=== PATIENT | female | born 1985 | race Caucasian/White ===

== ENCOUNTER 2016-12-27 16:29 | Outpatient (CLI) | payer BC ==
[2016-12-27 17:37] LABS: #Eosinphils 0.1 thou/uL (0.0-0.7); #Lymphocytes 3.2 thou/uL (1.20-3.40); #Monocytes 0.5 thou/uL (0.11-0.59); #Neutrophils 5.3 thou/uL (1.40-6.50); %Basophils 0.4 % (0.0-1.0); %Eosinophils 0.6 % (0.0-10.0); %Lymphocytes 35.4 % (21.0-51.0); %Monocytes 5.3 % (0.0-10.0); Hematocrit 41.5 % (36.0-47.0); Mean Platelet Volume 7.7 fL (7.4-10.4); Red Blood Cell (RBC) Count 4.45 mill/uL (4.20-5.40); White Blood Cell (WBC) Count 9.2 thou/uL (4.8-10.8)
[2016-12-27 18:03] LABS: ALT (SGPT) 12 U/L (8-55); AST (SGOT) 16 U/L (5-34); Alkaline Phosphatase 83 U/L (40-150); Anion Gap 12 mmol/L (10-20); BUN (Urea Nitrogen) 13 mg/dL (7.0-18.7); Bilirubin, Direct 0.2 mg/dL (0.1-0.3); Bilirubin, Total 0.4 mg/dL (0.2-1.2); Calc. Creatinine Clearance 0 mL/min (70-130); Calcium 9.2 mg/dL (7.8-10.44); Carbon Dioxide 30 mmol/L (22-29); Chloride 103 mmol/L (98-107); Estimated GFR-MDRD 86; Globulin 2.9 g/dL (2.4-3.5); Protein, Total 7.1 g/dL (6.0-8.3)
== END 2016-12-27 16:30 | disposition home or self-care (01) ==
LOC: LABBT 16:29
PROVIDERS: ATTEND Surgery
DX: Z01.812 Encounter for preprocedural laboratory examination (principal); K80.20 Calculus of gallbladder without cholecystitis without obstruction
CPT/HCPCS: 80053; 80076; 85025

== ENCOUNTER → 2016-12-29 | Day surgery (SDC) | payer BC ==
[2016-12-27 16:39] VITALS: BMI 28.7
[~2016-12-29] MED LIST: Bupivacaine HCl 0.5%/Epinephrine 1:200,000/PF 30 ml Vial ONE; Dexamethasone 20 MG/5 ML VIAL ONE; Fentanyl 100 MCG/2 ML VIAL ONE; Glycopyrrolate 0.2 MG/ML 5 ML SYRINGE ONE; Ketorolac Tromethamine 30 MG/ML VIAL ONE; Lidocaine 1% PF 5 ML VIAL ONE; Midazolam HCl 2 mg/2 ml Vial ONE; Ondansetron HCl/PF 4 MG/2 ML Vial IVP PRN; Ondansetron HCl/PF 4 MG/2 ML Vial ONE; Promethazine HCl 25 MG/ML VIAL IM/IV PRN; Propofol 200 MG/20 ML VIAL ONE; Sodium Chloride 0.9% 100 ML ONE
--- NOTE | 2016-12-29 12:37 | OP ---
DATE OF PROCEDURE: 12/29/2016 PREOPERATIVE DIAGNOSIS: Symptomatic cholelithiasis. SURGEON: Javi Whitehead M.D. PROCEDURE PERFORMED: Laparoscopic cholecystectomy. INDICATIONS: This is a 31-year-old female who has been having episodic right upper quadrant pain. Ultrasound showed cholelithiasis. FINDINGS: Small cystic duct. PROCEDURE: After informed consent was obtained, the patient was taken to the operating room and giv en general endotracheal anesthesia. She was placed in the supine position. The abdomen was prepped and draped in the usual fashion. Local anesthesia was infiltrated subcutaneously and deep. A subu mbilical incision was performed. The subcu divided sharply. Fascia grasped and two stay sutures of 0 Vicryl placed to either side of midline. Midline incised. Digital palpation revealed no local a dhesions. A blunt 10/12 mm trocar inserted. Pneumoperitoneum was created to a pressure of 15 mmHg. A 0 degree laparoscope inserted under direct vision, three 5 mm ports placed subcostally. The gall bladder grasped and advanced superiorly. Peritoneum lysed distally revealed cystic duct and artery. The duct was triply ligated and the artery triply ligated and divided. The gallbladder was remove d from its fossa utilizing electrocautery, removed from the abdomen through the umbilical port. Hem ostasis was assured. Trocars and retractors removed. The fascia closed with interrupted 0 Vicryl s uture. Skin closed with interrupted 4-0 Rapide. Dermabond applied. The patient tolerated the proc edure well and transferred to recovery in good condition. Sponge and needle count verified correct x2.
== END ==
LOC: SDC 07:26
PROVIDERS: ATTEND Surgery
PROC: 0FT44ZZ Resection of Gallbladder, Percutaneous Endoscopic Approach (ICD-10-PCS; principal; 2016-12-29)
DX: K80.10 Calculus of gallbladder with chronic cholecystitis without obstruction (principal)
CPT/HCPCS: 88304; 96374; J0131; J0670; J0694; J1100; J1885; J2001; J2250; J2405; J2704; J3010; J7050

== ENCOUNTER 2018-01-03 20:39 | Day surgery (SDC) | payer BC ==
[2018-01-03 21:17] VITALS: BMI 34.9
--- NOTE | 2018-01-03 21:33 | PDOC.LDHP ---
Labor and Delivery H&P HPI: Patient of Dr Rockwell Location: Triage L&D CC: irregular ctx, was 1 cm last cervical exam HPI: 32yo HX x 1, at 38 weeks 1 day, here for irregular CTX. No VB, no LOF, good FM. No fevers. Review of Systems: complete ROS completed and negative as per HPI Current gestational age (weeks): 38 (1 day) Due date: 01/16/18 Dating criteria: last menstrual period Grav: 2 Para: 1 OB History Details: x 1; last weight was 9#; no GDM HX Current complications: none Abnormal US findings: No Current medications: pre-keanu vitamins Previous surgical history: other (Leep;adriana 2017;wisdom teeth) Allergies/Adverse Reactions: Allergies Allergy/AdvReac Type Severity Reaction Status Date / Time No Known Allergies Allergy Verified 01/03/18 21:09 Social history: none - Physical Exam Vital signs reviewed and normal: yes (119/75) General: NAD Heart: RRR Lungs: CTAB Abdomen: gravid Extremeties: no edema FHT: category 1 Hutton contractions every: rare contractions - Vaginal Exam cm dilated: 1 (unchnaged from prior exam) Effacement: 50% (40-50) Station: -2 - Assessment Threatened labor at early term; GBS pos; still 1cm- same as prior exam prior to L&D eval. - Plan Plan: observation in L&D (No evidence true labor at this time; FHT at low baseline but audible FM and accels; patient cleared for vag delivery by primary MD despite HX macrosomia last delivery. This EFW felt to be less than last delivery.)
== END 2018-01-03 22:25 | disposition home or self-care (01) ==
LOC: L&D/OP 20:39
PROVIDERS: ATTEND Obstetrics & Gynecology
DX: O47.1 False labor at or after 37 completed weeks of gestation (principal); Z3A.38 38 weeks gestation of pregnancy

== ENCOUNTER 2018-01-16 05:20 | Inpatient (IN) | payer BC ==
[2018-01-16] MEDS ORDERED: Ibuprofen 800 MG TAB PO PRN (23:16)
[2018-01-16] MEDS ORDERED: Ondansetron PF 4 MG/2 ML Vial IVP PRN (23:16)
[2018-01-16] MEDS ORDERED: NS w/ Oxytocin 10 units 500 ML IV SCH (23:16)
[2018-01-16] MEDS ORDERED: Lidocaine 1% (PF) 30 ML VIAL SC PRN (23:16)
[2018-01-16] MEDS ORDERED: NS / Oxytocin 40 units/1000ml 1,000 ML IV PRN (23:16)
[2018-01-16] MEDS ORDERED: Misoprostol 200 MCG TAB PR PRN (23:16)
[2018-01-16] MEDS ORDERED: Promethazine HCl 25 MG/ML VIAL IM PRN (23:16)
[2018-01-16] MEDS ORDERED: HYDROcodone/Acetaminophen 5/325 mg Tablet PO PRN (23:16)
[2018-01-16] MEDS ORDERED: Penicillin G Potassium 5 MILL.UNITS in Sodium Chloride 0.9% 100 ML IVPB SCH (23:30)
[2018-01-16] MEDS: Lactated Ringer's 1,000 ML IV SCH (23:33)
[2018-01-16 23:49] LABS: Hemoglobin 12.1 g/dL (12.0-16.0); Mean Corpuscular HGB CONC 32.7 g/dL (32.0-36.0); Mean Corpuscular Hemoglobin 28.1 pg (27.0-31.0); Mean Corpuscular Volume 85.9 fL (78.0-98.0); Mean Platelet Volume 8.1 fL (7.4-10.4); Platelet Count 237 thou/uL (130-400); RBC Distribution Width 12.9 % (11.5-14.5); Red Blood Cell (RBC) Count 4.32 mill/uL (4.20-5.40); White Blood Cell (WBC) Count 12.4 thou/uL (4.8-10.8)
[2018-01-17] MEDS ORDERED: Misoprostol 100 MCG TAB VAG SCH (00:15)
[2018-01-17 00:22] VITALS: BMI 34.9
[2018-01-17 00:26] LABS: HBSAg Index 0.18 S/CO (0-0.99); Hep B Surf Ag Non-Reactive S/CO (NonReactive); Syphilis Antibody Nonreactive (Nonreactive); Syphilis Antibody Index 0.04 S/CO (<1.00 Non-Reactive)
[2018-01-17] MEDS: Lactated Ringer's 1,000 ML IV SCH (02:20)
[2018-01-17] MEDS ORDERED: Fentanyl 4 mcg/Bup 0.1% Cadd 100 ML ONE (05:52)
[2018-01-17] MEDS ORDERED: Naloxone HCl 0.4 mg/ml Vial IVP PRN ×2 (06:52)
[2018-01-17] MEDS ORDERED: Lactated Ringer's 500 ML IV PRN (06:52)
[2018-01-17] MEDS ORDERED: Ondansetron PF 4 MG/2 ML Vial IVP PRN (06:52)
[2018-01-17] MEDS ORDERED: Promethazine HCl 25 MG/ML VIAL IM PRN (06:52)
[2018-01-17] MEDS ORDERED: Eucerin (Mineral Oil/Petrolatum,White) 30 gm Jar TOP PRN (06:52)
[2018-01-17] MEDS ORDERED: diphenhydrAMINE 50 MG/ML VIAL IVP PRN (06:52)
[2018-01-17] MEDS ORDERED: Acetaminophen 325 MG TAB PO PRN (06:52)
[2018-01-17] MEDS ORDERED: ePHEDrine/0.9% NaCl/PF SYRINGE 50 mg/10 ml SLOW IVP PRN (06:52)
[2018-01-17] MEDS ORDERED: Fentanyl 4 mcg/Bupivacaine 0.1% Cassette 100 ML EPIDURAL SCH (07:00)
[2018-01-17] MEDS ORDERED: Communication Order-Pharmacy FS SCH (07:00)
[2018-01-17] MEDS: Penicillin G 2.5 MILL.units 2.5 MILL.UNITS in Premix Bag 1 BAG IVPB SCH ×3 (08:30→15:21)
[2018-01-17] MEDS ORDERED: NS / Oxytocin 40 units/1000ml 1,000 ML ONE (10:04)
[2018-01-17] MEDS ORDERED: Lidocaine 1% (PF) 30 ML VIAL ONE (10:04)
--- NOTE | 2018-01-17 10:54 | PDOC.OPDEL ---
OB Operative/Delivery Note Delivery Dr/Surgeon: Moiz Pre-Delivery Diagnosis: elective induction Procedure/Post Delivery Dx: spontaneous vaginal delivery Weeks gestation: 39 Anesthesia: epidural - Findings A Sex: male - 1 min: 9 - 5 min: 9 - Additional Findings/Plan Placenta delivered: spontaneous Repaired Obstetrical Laceration: 2nd degree Estimated blood loss: <500ml Compilations/Other Findings: none Post delivery plan: routine recovery
[2018-01-17] MEDS ORDERED: Milk Of Magnesia 30 ML UDCUP PO PRN (10:55)
[2018-01-17] MEDS ORDERED: Lanolin Ointment 7 GM TUBE TOP PRN (10:55)
[2018-01-17] MEDS ORDERED: Benzocaine/Menthol 20-0.5% 60 ML CAN TOP PRN (10:55)
[2018-01-17] MEDS ORDERED: Adacel (T-DAP) 0.5 ML VIAL IM ONE (10:55)
[2018-01-17] MEDS ORDERED: Preparation H Ointment 28 GM TUBE PR PRN (10:55)
[2018-01-17] MEDS ORDERED: Bisacodyl 10 MG SUPP PR PRN (10:55)
[2018-01-17] MEDS ORDERED: NS / Oxytocin 40 units/1000ml 1,000 ML IV SCH (11:00)
[2018-01-17] MEDS: Ibuprofen 800 MG TAB PO SCH ×3 (15:21→23:49)
[2018-01-17] MEDS: Ferrous Sulfate 325 MG TAB PO SCH (18:09)
[2018-01-17] MEDS ORDERED: traMADol HCl 50 MG TAB PO PRN ×2 (18:30)
[2018-01-17] MEDS: Docusate Calcium (SURFAK) 240 MG CAP PO SCH (23:48)
[2018-01-17] MEDS ORDERED: Calcium Carbonate 500 MG ChewTAB PO PRN (23:57)
--- NOTE | 2018-01-18 09:13 | PDOC.PP ---
Post Progress Note Post Day #: 1 PO intake tolerated: yes Flatus: yes Ambulation: yes Vital Signs (12 hours) Temp Pulse Resp BP Pulse Ox 01/18/18 07:40 97.8 F 62 20 113/61 96 01/18/18 05:45 97.7 F 76 16 93/50 L 01/17/18 23:45 98.3 F 88 16 99/54 L Weight Weight 230 lb - Physical Examination Abdominal: + bowel sounds, lochia, no distention, appropriately TTP Extremities: negative homans (B) Result Diagrams: 01/16/18 23:33 Additional Labs: Post Labs Blood Type A NEGATIVE 01/16/18 23:33 Hep Bs Antigen Non-Reactive S/CO (NonReactive) 01/16/18 23:33 - Assessment/Plan post day 1 doing well. d/c home if infant diswcharged. Follow up in 6 weeks.
[2018-01-18] MEDS ORDERED: Bupivacaine/Epinephrine 0.25% 30 ML VIAL ONE (09:47)
[2018-01-18] MEDS ORDERED: Lidocaine 2% MPF 10 ML AMP (For Epidural Use) ONE (09:47)
[2018-01-18] MEDS: Ibuprofen 800 MG TAB PO SCH ×3 (14:37→22:24)
[2018-01-18] MEDS: Ferrous Sulfate 325 MG TAB PO SCH ×2 (14:52→18:29)
[2018-01-18] MEDS: Prenatal Vitamin 1 TAB PO SCH (14:52)
[2018-01-18] MEDS: Docusate Calcium (SURFAK) 240 MG CAP PO SCH ×2 (14:52→22:26)
[2018-01-19] MEDS: Ibuprofen 800 MG TAB PO SCH ×2 (05:46→17:26)
--- NOTE | 2018-01-19 05:46 | PDOC.PP ---
Post Progress Note Post Day #: 2 Subjective: Doing well PO intake tolerated: yes Flatus: yes Ambulation: yes Vital Signs (12 hours) Temp Pulse Resp BP 01/18/18 23:30 98.4 F 74 16 103/55 L Weight Weight 230 lb Past 24 hour vitals reviewed - Physical Examination General: NAD Cardiovascular: no m/r/g Respiratory: clear to auscultation bilaterally, non-labored breathing Abdominal: + bowel sounds, lochia, no distention Extremities: negative homans (B) Neurological: no gross focal deficits Psychiatric: A&Ox3, normal affect Result Diagrams: 01/16/18 23:33 Additional Labs: Post Labs Blood Type A NEGATIVE 01/16/18 23:33 Hep Bs Antigen Non-Reactive S/CO (NonReactive) 01/16/18 23:33 Rubella IgG Antibody Less than 0.90 index (Immune >0.99) L 01/17/18 15:22 (1) Term of male Code(s): Z37.0 - SINGLE LIVE Status: Acute - Assessment/Plan PPD2 doing well. Baby is in NICU being evaluated for cardiac isues due to some suspected hypoxic changes. Further workup pending today. I have discussed potential discharge for mom at 1600 today with bed and breakfast stay if baby stays.
[2018-01-19] MEDS: Ferrous Sulfate 325 MG TAB PO SCH (08:36)
[2018-01-19] MEDS: Docusate Calcium (SURFAK) 240 MG CAP PO SCH (08:45)
[2018-01-19] MEDS: Prenatal Vitamin 1 TAB PO SCH (08:45)
[2018-01-19 15:00] VITALS: BP 121/81; TEMP 98.4
[2018-01-19] MEDS ORDERED: Measles/Mumps/Rubella 10 MCG/0.5 ML VIAL SC ONE (15:15)
== END 2018-01-19 17:15 | disposition home or self-care (01) | DRG 807 ==
LOC: EDSTATUS 17:09 → L&D 22:38 → 3SE 01-17 15:07
PROVIDERS: ADMIT Obstetrics & Gynecology; ATTEND Obstetrics & Gynecology
PROC: 10907ZC Drainage of Amniotic Fluid, Therapeutic from Products of Conception, Via Natural or Artificial Opening (ICD-10-PCS; 2018-01-16)
PROC: 10E0XZZ Delivery of Products of Conception, External Approach (ICD-10-PCS; principal; 2018-01-17)
PROC: 0KQM0ZZ Repair Perineum Muscle, Open Approach (ICD-10-PCS; 2018-01-17)
DX: O99.824 Streptococcus B carrier state complicating childbirth (principal); Z37.0 Single live birth; O70.1 Second degree perineal laceration during delivery; Z3A.39 39 weeks gestation of pregnancy
CPT/HCPCS: 36415; 51702; 85027; 85461; 86762; 86780; 86850; 86900; 86901; 87340; 90384; 90707; 96372; J2001; J2540; J7050